=== PATIENT | male | born 1990 | race Caucasian/White ===

== ENCOUNTER 2025-01-25 03:20 | Emergency (ER) | payer SELFPAY ==
[2025-01-25 03:22] VITALS: BP 171/93; PULSE 76; RESP 18; TEMP 36.7; O2SAT 98; BMI 38.7
[2025-01-25] MEDS: Lidocaine 2% /Epi 1:100 (20ml) 20 ML VIAL INFILT (04:29)
[2025-01-25 06:00] VITALS: RESP 18
--- NOTE | 2025-01-25 06:00 | EDS_ITS ---
HPI History of Present Illness Chief Complaint: Dental Informant: patient Narrative Narrative: Patient is a 34-year-old male who states he has a past history of bad teeth. He states that he has a rotten tooth in the right lower molar region. He reports that over the last 2 to 3 days he has had increasing pain and facial swelling. He denies any recent trauma prior to the symptoms beginning and he denies any trouble breathing or swallowing. However because of the worsening symptoms he has concern for infection and therefore comes in for evaluation [facility] Medical History no medical history Home Medications ?Medication ?Instructions ?Recorded ?Last Taken ?Type clindamycin HCl 300 mg capsule 300 mg PO 4X/DAY #40 CA PSULES 01/25/25 Unknown Rx (Cleocin HCl) oxycodone-acetaminophen 5 mg-325 1 tab PO Q6H PRN pain 3 days #12 01/25/25 Unknown Rx mg tablet (Percocet) tabs Allergy/AdvReac Type Severity Reaction Status Date / Time sulfamethoxazole (From Allergy Mild HOT Verified 01/25/25 03:21 Bactrim) trimethoprim (From Bactrim) Allergy Mild HOT Verified 01/25/25 03:21 Social History Smoking Status: Current every day smoker tobacco type: cigarettes ROS ROS ED Constitutional Constitutional ED: Denies chills or fever(s) Eyes Eyes: Denies change in vision ENT ENT ED: Reports other Details: Positive dental pain and facial swelling ; Denies sore throat Cardiovascular Cardiovascular: Denies chest pain Respiratory/Chest Respiratory/Chest: Denies cough or dyspnea Gastrointestinal Gastrointestinal: Denies abdominal pain, diarrhea, nausea or vomiting Musculoskeletal Musculoskeletal: Denies myalgias or neck pain Integumentary Denies rash Neurologic Neurologic: Denies headache(s) Hematologic/Lymphatic Hematologic/Lymphatic: Denies easy bleeding or easy bruising Allergic/Immunologic Allergic/Immunologic ED: Denies mouth swelling or tongue swelling EXAM Physical Exam Const Vital Signs: 01/25/25 03:22 Temperature 98.0 F Temperature Source Temporal Pulse Rate 76 Respiratory Rate 18 Blood Pressure 171/93 H Blood Pressure Mean 119 Pulse Ox 98 Oxygen Delivery Method Room Air Positive well nourished and well developed General Appearance ED: well developed; Negative for pallor HEENT HEENT Narrative: No tongue or lip swelling no airway edema or compromise; no secondary findings in the posterior pharynx to suggest infection No signs of ANUG Patient does have multiple dental caries with the worst pain in the right lower molar region. There is surrounding soft tissue swelling to the gingiva consistent with dental abscess. Eyes PERRL and EOMs intact bilaterally Neck supple Neck Narrative: No brawny edema in the submental space to suggest Wong's angina Resp normal respiratory effort and clear to auscultation bilaterally Cardio regular rate and regular rhythm Extremity normal to inspection Neuro oriented x3, CN's II-XII intact bilaterally and no sensory deficits noted Sensorium / Orientation: alert Motor Exam: strength 5/5 throughout Psych mental status grossly normal Skin no rashes or lesions noted Skin Narrative: Soft tissue swelling to the right cheek/lower jaw consistent with dental abscess; no overlying erythema warmth or lymphangitic streaking General Skin Exam: Negative for jaundice or pallor MDM MDM MDM Narrative Medical decision making narrative: Patient arrived to the ER hypertensive otherwise stable vitals. History and exam is consistent with a dental abscess. He does not have signs of ANUG or Wong angina he is not in respiratory distress and vital signs do not indicate sepsis therefore I feel no need for imaging or laboratory studies. Based on the exam showing soft tissue swelling along the right lower gingival region there is no abscess formation present and therefore I feel he would benefit from incision and drainage. This was performed as documented below. As the abscess is now been drained and he does not have signs of sepsis or respiratory distress/airway compromise there is no need for further intervention in the ER and he is otherwise safe for discharge Patient was given a right inferior alveolar dental block using 1.5 mL of 0.5% Marcaine and 1.5 mL of 2% lidocaine with epinephrine. Following anesthesia a #11 blade was used to make a 1 cm incision over top the area of fluctuance along the right lower gingival region. There was moderate amount of purulent material expressed from the area of fluctuant. The patient tolerated the procedure well and there was no complication. History & Record Review Discussion w/independent historian: Patient Discharge Plan Triage Chief Complaint: Dental ED Provider: Get Baumann Dx/Rx/DC Orders Clinical Impression: Dental abscess, Dental caries, Hypertension Instructions: Dental Abscess Prescriptions: New clindamycin HCl [Cleocin HCl] 300 mg capsule 300 mg PO 4X/DAY Qty: 40 0RF oxycodone-acetaminophen [Percocet] 5-325 mg tablet 1 tab PO Q6H PRN (Reason: pain) 3 Days Qty: 12 0RF Stand Alone Forms: ED Work / School Excuse Primary Care Provider: Care Physician,No Primary Referrals: Care Physician,No Primary [Primary Care Provider] - Activity Restrictions/Additional Instructions: Please do salt water gargles 2-3 times a day for the next 2 to 3 days to help remove any remaining infection. Take your antibiotic as directed as well to resolve the infection and follow-up with your dentist for repeat evaluation. Return to the ER should you have any further concerns Print Language: Lithuanian Disposition Disposition: Home, Self Care Discharge Date/Time: 01/25/25 06:18
[2025-01-25 06:16] VITALS: BP 147/84; PULSE 75; RESP 16; TEMP 36.7; O2SAT 97
== END 2025-01-25 06:18 | disposition home or self-care (01) ==
PROVIDERS: Emergency Provider Emergency Medicine; Visit Provider Emergency Medicine
DX: K04.7 Periapical abscess without sinus (principal); K02.9 Dental caries, unspecified; I10 Essential (primary) hypertension; F17.210 Nicotine dependence, cigarettes, uncomplicated
CPT/HCPCS: 41800; 64400; 96372; 99283